=== PATIENT | male | born 1990 | race Caucasian/White ===

== ENCOUNTER 2016-12-13 17:56 | Emergency (ER) | payer MEDICAID ==
[~2016-12-13] VITALS: Ht 172.7 cm; Wt 60.0 kg
[2016-12-13 17:57] VITALS: BP 152/70; PULSE 112; RESP 16; TEMP 99.9; O2SAT 96
--- NOTE | 2016-12-13 18:00 | PD ---
Physical Exam Date Seen by Provider: Dec 13, 2016 Time Seen by Provider: 17:59 Narrative 26 yo male that presents to the ED for possible bite. Started yesterday. No IVDA. located to the left hand. Pain is 7/10. No fevers, chills or sweats. No injury that he can think off. Unknown what might have bit him. Vitals sign stable. Patient awaiting bed placement. Data Data Last Documented VS Vital Signs Date Time Temp Pulse Resp B/P Pulse Ox O2 Delivery O2 Flow Rate FiO2 12/13/16 17:57 99.9 112 16 152/70 96 Room Air [facility] Medical Record Reviewed: Yes Supervised Visit with NEVA: Bill Cortes Dec 13, 2016 18:00
[2016-12-13] MEDS ORDERED: MEDR4PAK PO (19:18)
--- NOTE | 2016-12-13 19:25 | PD ---
HPI Chief Complaint: Bite or Sting Time Seen by Provider: 19:20 Travel History International Travel<30 days: No Contact w/Intl Traveler<30days: No Traveled to known affect area: No History of Present Illness HPI 26-year-old white male presents to emergency department for evaluation of a rash. He states that he has been sleeping [place] in a [place]. He states that 2 days ago he developed a pruritic raised rash with some burning and pain. He states he has multiple lesions on his hands, upper arms, lower legs, and neck. He states that he feels that he was bitten by something because he slept in a tent. He states that he is currently displaced from his home and has been staying in a tent. He denies any IV drug abuse. He denies any recent illness. He denies any fever chills. No nausea vomiting. No difficulty swallowing. No shortness of breath or wheezing. PFSH Past Medical History Narrative Medical C. difficile, multiple medical problems but he cannot recall them as he was a child. Tetanus Vaccination: < 5 Years Past Surgical History Surgical History: No Previous Surgery Social History Alcohol Use: Yes Tobacco Use: Yes Allergies-Medications (Allergen,Severity, Reaction): Coded Allergies: Flagyl (Verified Allergy, Unknown, 12/13/16) Penicillin (Verified Allergy, Unknown, 12/13/16) Sulfa (Verified Allergy, Unknown, 12/13/16) Reported Meds & Prescriptions Reported Meds & Active Scripts Active Medrol Dosepak (Methylprednisolone) 4 Mg Dspk 4 Mg PO DIRECTED Per Pharmacist direction Review of Systems Except as stated in HPI: all other systems reviewed are Neg Physical Exam Narrative GENERAL: Well-developed, well-nourished in no acute distress. Nontoxic appearing. HEAD: Normocephalic, atraumatic. EYES: Pupils equal round and reactive. Extraocular motions intact. No scleral icterus. No injection or drainage. ENT: TMs clear without erythema. The external auditory canals clear. Nose: clear . Posterior pharynx is pink and moist. No tonsillar edema or exudate. Uvula midline. Airway patent. NECK: Trachea midline.Supple, nontender, moves head freely. No central bony tenderness or spasm. CARDIOVASCULAR: Regular rate and rhythm without murmurs, gallops, or rubs. RESPIRATORY: Clear to auscultation. Breath sounds equal bilaterally. No wheezes , rales, or rhonchi. GASTROINTESTINAL: Abdomen soft, non-tender, nondistended. No hepato-splenomegaly , or palpable masses. No guarding. EXTREMITIES: No clubbing, cyanosis, or edema. No joint tenderness, effusion, or edema noted. BACK: Nontender without deformity or crepitance. No flank tenderness. Skin: Patient has raised red excoriated papules. They're erythematous and mildly warm. He has mild edema. No fluctuance or pointing. No signs of infection. These are scattered on the upper extremities, lower extremities, and the neck. There are. The face. His chest, back and abdomen are spared. He has a few in the belt line. Data Data Last Documented VS Vital Signs Date Time Temp Pulse Resp B/P Pulse Ox O2 Delivery O2 Flow Rate FiO2 12/13/16 17:57 99.9 112 16 152/70 96 Room Air Orders Prednisone (Deltasone) (12/13/16 19:30) MDM Medical Decision Making Medical Screen Exam Complete: Yes Emergency Medical Condition: Yes Medical Record Reviewed: Yes Differential Diagnosis MDM: High Differential diagnoses: Abscess, folliculitis, cellulitis, lymphangitis, abrasion, contact dermatitis, insect bites Narrative Course These appear to be insect bites. Patient is advised to use [id number] Benadryl. He is given prednisone 40 g by mouth and Medrol Dosepak. Diagnosis Primary Impression: Insect bites Qualified Code: W57.XXXA - Insect bites, initial encounter Additional Impression: insect bites Patient Instructions: General Instructions Additional Instructions: Rest. Cool compress. Medications as directed. Benadryl 50 mg every 4-6 hours. Insect repellent with deet. Follow-up with medical doctor in 3-5 days. Return to the ER for any problems. Med/Other Pt SpecificInfo: Prescription(s) given Scripts Methylprednisolone Dosepak (Medrol Dosepak)4 Mg Dspk4 Mg PO DIRECTED #1 DSPK Ref 0 Per Pharmacist direction Prov:Lupe Benavides 12/13/16 Disposition: 01 DISCHARGE HOME Condition: Stable Skip Ahuja Dec 13, 2016 19:25
[2016-12-13] MEDS ORDERED: predniSONE 20 MG TAB PO ONE (19:30)
== END 2016-12-13 19:47 | disposition home or self-care (01) ==
LOC: NEPK 17:56
DX: S40.869A Insect bite (nonvenomous) of unspecified upper arm, initial encounter (principal); S70.369A Insect bite (nonvenomous), unspecified thigh, initial encounter; Z59.0 Homelessness; Z72.0 Tobacco use; W57.XXXA Bitten or stung by nonvenomous insect and other nonvenomous arthropods, initial encounter; Y92.828 Other wilderness area as the place of occurrence of the external cause; Y93.84 Activity, sleeping; Y99.8 Other external cause status
CPT/HCPCS: 99283; J7512